=== PATIENT | male | born 1995 | race Caucasian/White ===

== ENCOUNTER 2024-04-14 22:55 | Emergency (ER) | payer SELFPAY ==
[~2024-04-14] VITALS: Ht 175.3 cm; Wt 78.0 kg
[2024-04-14 23:37] VITALS: BP 131/71; PULSE 100; RESP 16; TEMP 98.5; O2SAT 99
== END 2024-04-15 00:51 | disposition left against medical advice (07) ==
LOC: ER 23:16
DX: S00.81XA Abrasion of other part of head, initial encounter (principal); W19.XXXA Unspecified fall, initial encounter; Y93.89 Activity, other specified; Y92.89 Other specified places as the place of occurrence of the external cause; Y99.8 Other external cause status
CPT/HCPCS: 99283